=== PATIENT | female | born 1945 | race Caucasian/White ===

== ENCOUNTER → 2019-04-28 | Outpatient (CLI) | payer MEDICARE, BC ==
--- NOTE | 2019-04-28 20:12 | RAD ---
CHEST PA LATERAL History: Dyspnea with exertion Comparison: None. Findings: The cardiomediastinal silhouette is normal. Pulmonary vasculature is normal. The lungs are clear. Pulmonary hyperinflation noted. No pleural effusion or pneumothorax is seen. There is no acute bone abnormality. IMPRESSION: No acute cardiopulmonary process. COPD. Electronically signed by: León Castrejon MD (04/28/2019 8:10 PM) [facility]
== END | disposition home or self-care (01) ==
LOC: PMG 09:53
PROVIDERS: ATTEND Physician Assistant Medical
DX: R06.09 Other forms of dyspnea (principal); J44.9 Chronic obstructive pulmonary disease, unspecified
CPT/HCPCS: 71046

== ENCOUNTER → 2019-05-29 | Outpatient (CLI) | payer MEDICARE, BC ==
--- NOTE | 2019-05-29 12:00 | RAD ---
EXAM: Right knee, 2 views HISTORY: Pain. COMPARISON: None. FINDINGS: 2 views of the right knee are obtained. There is medial compartment joint space narrowing. There is medial and lateral compartment chondrocalcinosis. There is no joint effusion. IMPRESSION: No acute osseous finding. Mild medial compartment joint space narrowing and chondrocalcinosis. Electronically signed by: Ashtyn Tran MD (05/29/2019 11:57 AM) [facility]
== END | disposition home or self-care (01) ==
LOC: PMG 10:59
PROVIDERS: ATTEND Physician Assistant Medical
DX: M11.261 Other chondrocalcinosis, right knee (principal)
CPT/HCPCS: 73560

== ENCOUNTER → 2021-02-24 | Outpatient (CLI) | payer MEDICARE, BC ==
--- NOTE | 2021-02-24 15:09 | RAD ---
INDICATION: 75 years of age asymptomatic female patient presents for screening mammography. TECHNIQUE: Full field craniocaudal and mediolateral oblique images of both breasts were obtained usi ng digital technique with tomosynthesis and also analyzed with computer-aided detection software. COMPARISON: This is a new baseline examination. BREAST COMPOSITION: Category B: There are scattered fibroglandular densities. FINDINGS: Benign calcifications are present. No suspicious masses, microcalcifications or architectural distortion is present to suggest malignanc y in either breast. The visualized axillae are unremarkable. IMPRESSION: No mammographic evidence of malignancy. RECOMMENDATION: Annual screening mammography is recommended, unless clinically indicated sooner based on symptoms or change in physical exam. BIRADS 2: BENIGN This study was interpreted with the benefit of Computerized Aided Detection (CAD). Patient information is entered into the reminder system with a target due date for the next screening mammogram. Mammography is the most sensitive method for finding small breast cancers, but it does not detect the m all and is not a substitute for careful clinical examination. A negative mammogram does not negate a clinically suspicious finding and should not result in delay in biopsying a clinically suspicious a bnormality. "Our facility is accredited by the [employer] Mammography Program." Electronically signed by: Lavon Leos MD (02/24/2021 3:07 PM) [id number]
== END ==
LOC: MAMMO 09:42
PROVIDERS: ATTEND Physician Assistant Medical
DX: Z12.31 Encounter for screening mammogram for malignant neoplasm of breast (principal)
CPT/HCPCS: 77063; 77067